=== PATIENT | female | born 1970 | race Caucasian/White ===

== ENCOUNTER → 2017-02-16 | Outpatient (CLI) | payer OTHER ==
[~2017-02-16] MED LIST: ALDACTONE50 MG PO; ASPIRIN EC81 MG PO; KLONOPIN TAB 00.5 MG PO; LEVAQUIN500 MG PO; LIPITOR TAB 2020 MG PO; LISINOPRIL-HCT1 EAC1 PO; LOPRESSOR100 MG PO; NITRO; OMEPRAZOLE40 MG PO; SYNTHROID150 MCG PO; ZOLOFT50 MG PO
== END ==
LOC: RAD 15:02
DX: M25.561 Pain in right knee (principal)
CPT/HCPCS: 73562

== ENCOUNTER → 2017-03-24 | Outpatient (CLI) | payer OTHER | LOC: KOH-I 13:45 | DX: S83.241A Other tear of medial meniscus, current injury, right knee, initial encounter (principal); M94.261 Chondromalacia, right knee | CPT/HCPCS: 73721 ==